=== PATIENT | male | born 2000 | race Caucasian/White ===

== ENCOUNTER 2024-02-27 12:51 | Inpatient (IN) ==
[2024-02-27 13:32] LABS: Basophils # (auto) 0.07 K/uL (0.00-0.20); Basophils % (auto) 0.8 %; Eosinophils # (auto) 0.12 K/uL (0.00-0.50); Eosinophils % (auto) 1.4 %; Hematocrit (blood only) 44.2 % (42.0-52.0); Hemoglobin 14.9 g/dl (14.0-18.0); Immature Granulocytes # (auto) 0.02 K/uL (0.01-0.20); Immature Granulocytes % (auto) 0.2 %; Lymphocytes # (auto) 2.01 K/uL (1.20-3.40); Lymphocytes % (auto) 22.9 %; Mean Corpuscular Hemoglobin 29.5 pg (25.0-34.0); Mean Corpuscular Hgb Conc 33.7 g/dL (32.0-36.0); Mean Corpuscular Volume 87.5 fL (80.0-100.0); Mean Platelet Volume 9.6 fL (9.4-12.4); Monocytes # (auto) 1.51 K/uL (0.11-0.59); Monocytes % (auto) 17.2 %; Neutrophils # (auto) 5.06 K/uL (1.40-6.50); Neutrophils % (auto) 57.5 %; Platelet Count 263 K/uL (130-400); RDW Coefficient of Variation 13.2 % (11.5-14.5); RDW Standard Deviation 42.3 fL (36.4-46.3); Red Blood Count 5.05 M/uL (4.70-6.10); White Blood Count 8.79 K/ul (4.8-10.8)
[2024-02-27 13:45] LABS: Albumin Globulin Ratio 1.7 (0.9-2); Albumin Level 4.6 gm/dl (3.4-5.0); BUN Creatinine Ratio 8.3 (10-20); Bilirubin,Total 0.4 mg/dl (0.2-1.0); Calcium 9.4 mg/dl (8.6-10.3); Creatinine Clr Calc Pharmacy 133.5 ml/min; Globulin 2.7 gm/dl (2.5-4.0); Potassium 3.8 mmol/L (3.5-5.1); Total Protein 7.3 gm/dl (6.0-8.3)
--- NOTE | 2024-02-27 13:48 | XRay Report ---
XR chest 1V not portable HISTORY: 24 years-old Male Chest pain, nonspecific acute chest pain COMPARISON: None TECHNIQUE: PA view of the chest FINDINGS: Cardiac silhouette is normal. No pneumothorax, pleural effusion or airspace consolidation. Bones appe ar normal. IMPRESSION: No acute process. ACT 112: Negative or not required by law. The above report was generated using voice recognition software. It may contain grammatical, syntax o r spelling errors. Electronically signed by: Simba Donnelly M.D. 02/27/2024 1:46 PM
[2024-02-27 13:59] LABS: Troponin I High Sensitivity 152.8 pg/ml (0-20)
[2024-02-27 13:59] LABS: Influenza A virus by PCR Negative (Neg); Influenza B virus by PCR Negative (Neg); RSV by PCR Negative (Neg); SARS CoV2 RNA(COVID-19) Ceph NEGATIVE (Negative)
[2024-02-27] MEDS: OPTIRAY 320 125ml IV ONE (14:14)
[2024-02-27] MEDS: SODIUM CHLORIDE 0.9% 1,000 ML IV ONE (14:22)
[2024-02-27] MEDS: ALBUTEROL HFA 8 GM INHALER INH ONE (14:22)
--- NOTE | 2024-02-27 14:22 | Emergency Department Note ---
Impression & Plan Precordial chest pain, Elevated troponin, Near syncope, Pneumonia ED Provider Note NAME: ULICES SARMIENTO AGE: 24 SEX: M : 2000 ARRIVES VIA: Walk-In INFORMANT: [Patient][friend] ED PROVIDER(S): [Edgar Moses MD] CHIEF COMPLAINT: Chest pain HISTORY OF PRESENT ILLNESS: The patient is a 24-year-old male whose been sick with a cough and congestion for about 2 weeks. He came to this area to visit a friend. It was his birthday and he admits that this past weekend, he did have a lot of alcohol to drink. This morning, he stood and became faint. He felt short of breath and had some chest discomfort. His symptoms were ongoing for a few hours, he was quite shaky and looked unwell. He presents for evaluation. Patient has no history of lung or heart disease. There has been no prolonged travel. No previous diagnosis of DVT or PE. No history of DVT or PE with his family. PMHx/PSHx/Social Hx: See Below PHYSICAL EXAM: GENERAL: Patient is in no acute distress. HEENT: No acute trauma, normocephalic atraumatic, mucous membranes moist, no nasal congestion. No throat erythema or exudate. He does have a hoarse voice. NECK: No stridor, no adenopathy, no meningismus, trachea is midline. LUNGS: Clear to auscultation bilaterally, no wheeze, no rhonchi, breath sounds equal. Breath sounds are diminished bilaterally. HEART: Without murmurs gallops or rubs, regular rate and rhythm. ABDOMEN: Soft, nontender, no peritonitis. EXTREMITIES: No cyanosis, full range of motion of all the joints without pain or difficulty. NEUROLOGIC: Oriented x 3, no acute motor or sensory deficits, no focal weakness. SKIN: No jaundice, no diaphoresis. DIFFERENTIAL DIAGNOSIS: Bronchitis or pneumonia, dysrhythmia, PE, musculoskeletal pain, dehydration, electrolyte imbalance, among others. EMERGENCY DEPARTMENT PROCEDURES: MEDICAL DECISION MAKING: There is no leukocytosis or concerning anemia. There is a normal platelet count. No coagulopathy. No renal failure or significant electrolyte abnormality. No concerning liver enzyme elevation. Patient appears to be in a euthyroid state. COVID, influenza and RSV testing returned negative. Chest x- ray did not show pneumonia or CHF. ECG showed a normal sinus rhythm, no obvious ischemia, no dysrhythmia. Cardiac enzyme testing x 1 was slightly elevated and concerning for potential cardiac injury. Chest CT showed a right upper lung pneumonia, no evidence for PE. The patient received IV saline for hydration. He was given IV ceftriaxone and oral doxycycline for his pneumonia findings. He received IV Zofran for nausea and was given albuterol for his presumed bronchospasm. The patient is currently resting comfortably. He is not hypoxic. He has done well. I did speak with cardiology. Given his complaints, given the troponin elevation, given the concerns for potential myocarditis, hospitalization/monitoring was felt warranted. I spoke with the patient and case management. I did speak with the on-call hospitalist. The patient is aware of all his results and he understands the need for a hospital stay. Prior/Outside records/notes reviewed: None ECG per my interpretation: Indication was chest pain and near syncope. The ECG shows a normal sinus rhythm with a rate of 84. There is no ST elevation, no PVCs. The QTc is 418. Continuous Cardiac Monitoring per my interpretation: An order was placed for continuous cardiac monitoring. The monitor shows a rate of 90 with normal sinus rhythm. Imaging/x-ray results per my interpretation: Chest x-ray does not show mediastinal widening, pneumonia or pneumothorax. Chronic Medical/Social conditions affecting care: None Care/Management discussed with: On-call cardiology-Dr. Ackerman, case management and the on-call hospitalist. Level of care consideration(s): After review of the information above and other included data: --I believe the patient requires escalation of care to admission DISPOSITION: Admission Past Med/Surg History Problem List (Updated 02/27/24 @ 17:38 by Edgar Moses MD) Pneumonia (Acute) Near syncope (Acute) Elevated troponin (Acute) Precordial chest pain (Acute) Elevated troponin Bronchopneumonia Medical History No significant medical problems Social History Smoking Status: Current every day smoker Feels Safe at Home: Yes Allergies Allergies Allergy/AdvReac Type Severity Reaction Status Date / Time amoxicillin Allergy Unknown Uncoded 02/27/24 17:07 Results & Data (ED) Vital Signs Vital Signs - 24 hr 02/27/24 12:57 02/27/24 13:00 02/27/24 13:42 Temperature 36.8 C Temperature Source Temporal Artery Scan Pulse Rate 124 H 75 75 Pulse Rhythm Regular Respiratory Rate 24 24 Blood Pressure 164/92 H Blood Pressure Mean 116 Blood Pressure Position Sitting Pulse Oximetry 97 97 Oxygen Delivery Method Room Air Room Air Sepsis Recent Fever Within 48 Hours No Sepsis New/Unexplained Change in Mental Status N/A Sepsis Action Taken by Nursing No Action Required 02/27/24 14:00 02/27/24 17:08 Temperature Temperature Source Pulse Rate 90 96 H Pulse Rhythm Respiratory Rate 20 Blood Pressure 141/88 H Blood Pressure Mean 107 Blood Pressure Position Pulse Oximetry Oxygen Delivery Method Sepsis Recent Fever Within 48 Hours Sepsis New/Unexplained Change in Mental Status Sepsis Action Taken by Snf Medications Current Medication List: was personally reviewed by me Laboratory Data Attestation: I reviewed the patient's lab results. 02/27/24 13:08 02/27/24 13:08 Lab Results 02/27/24 02/27/24 02/27/24 Range/Units 13:03 13:08 13:55 WBC 8.79 (4.8-10.8) K/ul RBC 5.05 (4.70-6.10) M/uL Hgb 14.9 (14.0-18.0) g/dl Hct 44.2 (42.0-52.0) % MCV 87.5 (80.0-100.0) fL MCH 29.5 (25.0-34.0) pg MCHC 33.7 (32.0-36.0) g/dL RDW Std Deviation 42.3 (36.4-46.3) fL RDW Coeff of Andrew 13.2 (11.5-14.5) % Plt Count 263 (130-400) K/uL MPV 9.6 (9.4-12.4) fL Immature Gran % (Auto) 0.2 % Neut % (Auto) 57.5 % Lymph % (Auto) 22.9 % Bent % (Auto) 17.2 % Eos % (Auto) 1.4 % Baso % (Auto) 0.8 % Neut # (Auto) 5.06 (1.40-6.50) K/uL Lymph # (Auto) 2.01 (1.20-3.40) K/uL Bent # (Auto) 1.51 H (0.11-0.59) K/uL Eos # (Auto) 0.12 (0.00-0.50) K/uL Baso # (Auto) 0.07 (0.00-0.20) K/uL Immature Gran # (Auto) 0.02 (0.01-0.20) K/uL PT Cancelled 10.9 INR Cancelled 1.0 APTT Cancelled 28 PTT Ratio Cancelled 1.0 Sodium 136 (136-145) mmol/L Potassium 3.8 (3.5-5.1) mmol/L Chloride 101 (98-107) mmol/L Carbon Dioxide 26 (21-32) mmol/L Anion Gap 9 (3-11) BUN 7 (6-23) mg/dl Creatinine 0.84 (0.6-1.4) mg/dl Est Cr Clr Drug Dosing 133.5 ml/min eGFR 126.45 BUN/Creatinine Ratio 8.3 L (10-20) Glucose 104 H (70-99(Fasting)) mg/dl Lactate (0.4-2.0) mmol/L Calcium 9.4 (8.6-10.3) mg/dl Magnesium 1.8 (1.7-2.4) mg/dl Total Bilirubin 0.4 (0.2-1.0) mg/dl AST 32 (13-39) U/L ALT 39 (7-52) U/L Alkaline Phosphatase 113 H (34-104) U/L Troponin I High Sens 152.8 H* (0-20) pg/ml Total Protein 7.3 (6.0-8.3) gm/dl Albumin 4.6 (3.4-5.0) gm/dl Globulin 2.7 (2.5-4.0) gm/dl Albumin/Globulin Ratio 1.7 (0.9-2) TSH 2.141 (0.300-4.500) uIu/ml SARS-CoV-2 (PCR) NEGATIVE (Negative) Influenza Type A (PCR) Negative (Neg) Influenza Type B (PCR) Negative (Neg) RSV (RT-PCR) Negative (Neg) 02/27/24 02/27/24 Range/Units 15:00 17:11 WBC (4.8-10.8) K/ul RBC (4.70-6.10) M/uL Hgb (14.0-18.0) g/dl Hct (42.0-52.0) % MCV (80.0-100.0) fL MCH (25.0-34.0) pg MCHC (32.0-36.0) g/dL RDW Std Deviation (36.4-46.3) fL RDW Coeff of Andrew (11.5-14.5) % Plt Count (130-400) K/uL MPV (9.4-12.4) fL Immature Gran % (Auto) % Neut % (Auto) % Lymph % (Auto) % Bent % (Auto) % Eos % (Auto) % Baso % (Auto) % Neut # (Auto) (1.40-6.50) K/uL Lymph # (Auto) (1.20-3.40) K/uL Bent # (Auto) (0.11-0.59) K/uL Eos # (Auto) (0.00-0.50) K/uL Baso # (Auto) (0.00-0.20) K/uL Immature Gran # (Auto) (0.01-0.20) K/uL PT INR APTT PTT Ratio Sodium (136-145) mmol/L Potassium (3.5-5.1) mmol/L Chloride (98-107) mmol/L Carbon Dioxide (21-32) mmol/L Anion Gap (3-11) BUN (6-23) mg/dl Creatinine (0.6-1.4) mg/dl Est Cr Clr Drug Dosing ml/min eGFR BUN/Creatinine Ratio (10-20) Glucose (70-99(Fasting)) mg/dl Lactate 1.9 (0.4-2.0) mmol/L Calcium (8.6-10.3) mg/dl Magnesium (1.7-2.4) mg/dl Total Bilirubin (0.2-1.0) mg/dl AST (13-39) U/L ALT (7-52) U/L Alkaline Phosphatase (34-104) U/L Troponin I High Sens 219.5 H* D (0-20) pg/ml Total Protein (6.0-8.3) gm/dl Albumin (3.4-5.0) gm/dl Globulin (2.5-4.0) gm/dl Albumin/Globulin Ratio (0.9-2) TSH (0.300-4.500) uIu/ml SARS-CoV-2 (PCR) (Negative) Influenza Type A (PCR) (Neg) Influenza Type B (PCR) (Neg) RSV (RT-PCR) (Neg) Administered Medications Discontinued Medications Albuterol (Albuterol Hfa 8 Gm Inhaler) 2 puffs INH NOW ONE Stop: 02/27/24 14:00 Last Admin: 02/27/24 14:22 Dose: 2 puffs Documented By: JADA Doxycycline Hyclate (Doxycycline Hyclate 100 Mg Cap) 100 mg PO NOW STA Stop: 02/27/24 15:29 Last Admin: 02/27/24 15:42 Dose: 100 mg Documented By: DANIELLE Sodium Chloride (Nss) 1,000 mls @ 999 mls/hr IV .Q1H1M ONE Stop: 02/27/24 14:59 Last Infusion: 02/27/24 15:34 Dose: Infused Documented By: Admin: 02/27/24 14:22 Dose: 999 mls/hr Documented By: JADA Ceftriaxone Sodium (Rocephin) 2,000 mg in 50 mls @ 100 mls/hr IV NOW STA Stop: 02/27/24 15:57 Last Infusion: 02/27/24 16:08 Dose: Infused Documented By: Admin: 02/27/24 15:41 Dose: 100 mls/hr Documented By: DANIELLE Ioversol (Optiray 320 125ml) 112 ml IV ONCE ONE Stop: 02/27/24 14:15 Last Admin: 02/27/24 14:14 Dose: 112 ml Documented By: VICENTE Ondansetron HCl (Ondansetron Inj 2 Mg/Ml 2 Ml Vial) 4 mg IV NOW STA Stop: 02/27/24 17:24 Last Admin: 02/27/24 17:28 Dose: 4 mg Documented By: DANIELLE Imaging Data Radiologist's Impression: Chest X-Ray 02/27/24 13:00 XR chest 1V not portable HISTORY: 24 years-old Male Chest pain, nonspecific acute chest pain COMPARISON: None TECHNIQUE: PA view of the chest FINDINGS: Cardiac silhouette is normal. No pneumothorax, pleural effusion or airspace consolidation. Bones appear normal. IMPRESSION: No acute process. ACT 112: Negative or not required by law. The above report was generated using voice recognition software. It may contain grammatical, syntax or spelling errors. Electronically signed by: Simba Donnelly M.D. 02/27/2024 1:46 PM Chest CTA 02/27/24 13:59 CT angio chest PE protocol CT DOSE: 733.02 mGy.cm HISTORY: 24 years-old Male with PE. Acute cough with chest pain TECHNIQUE: Multiple CTA images of the chest were obtained after the intravenous administration of 112 ml Optiray. Coronal and sagittal MIPS were obtained from the axial data set and were submitted for review. All measurements were obtained according to NASCET criteria. A dose lowering technique was utilized adhering to the principles of ALARA. COMPARISON: Chest radiograph of same day FINDINGS: CTA: There is adequate opacification of the pulmonary arteries to the level of the subsegmental branches without convincing evidence of acute pulmonary embolism. Abnormal thoracic aorta.Heart size is normal. CT CHEST: No dominant thyroid nodule is seen. No pathologically adenopathy by CT size criteria. There is no pneumothorax, pleural effusion or pulmonary edema. Residual thymic tissue in the anterior mediastinum. Mild bilateral bronchial wall thickening with areas of mosaic attenuation and air trapping noted within the left lung. Mild bronchoalveolar distribution of subcentimeter consolidative nodular foci within the posterior segment right upper lobe. No lobar space consolidation. Central airways are patent. The imaged upper abdominal structures are normal. The osseous structures appear unremarkable. IMPRESSION: 1. No pulmonary emboli. 2. Mild right upper lobe bronchopneumonia. 3. No pleural effusion or lymphadenopathy. ACT 112: Negative or not required by law. The above report was generated using voice recognition software. It may contain grammatical, syntax or spelling errors. Electronically signed by: Simba Donnelly M.D. 02/27/2024 3:25 PM Discharge Plan Visit Data Chief Complaint: Chest Pain Stated Complaint: CHEST PAIN, TROUBLE WALKING, SICK FOR 2 WKS ED Provider: Edgar Moses Discharge Problem: Precordial chest pain, Elevated troponin, Near syncope, Pneumonia Patient Disposition: Admitted As Inpatient Condition: Fair Forms Stand Alone Forms: [facility] Referrals Referrals: PCP,NO [Primary Care Provider] - Discharge Problem: Pneumonia Qualifiers: Pneumonia type: due to unspecified organism Laterality: right Lung location: u pper lobe of lung Qualified Code(s): J18.9 - Pneumonia, unspecified organism
[2024-02-27 14:29] LABS: Magnesium 1.8 mg/dl (1.7-2.4)
[2024-02-27 14:44] LABS: Thyroid Stimulating Hormone 2.141 uIu/ml (0.300-4.500)
[2024-02-27 14:48] LABS: Partial Thromboplastin Time 28 Seconds (21-31); Prothrombin Time 10.9 Seconds (9.0-12.0)
--- NOTE | 2024-02-27 15:19 | Electrocardiogram Report ---
Test Reason : Blood Pressure : */* mmHG Vent. Rate : 84 BPM Atrial Rate : 84 BPM P-R Int : 134 ms QRS Dur : 86 ms QT Int : 354 ms P-R-T Axes : 49 58 48 degrees QTcB Int : 418 ms Normal sinus rhythm Normal ECG No previous ECGs available Confirmed by Juan Ackerman ([id number]) on 02/27/2024 3:18:55 PM Referred By: Confirmed By: Juan Ackerman
--- NOTE | 2024-02-27 15:26 | CT Scan Report ---
CT angio chest PE protocol CT DOSE: 733.02 mGy.cm HISTORY: 24 years-old Male with PE. Acute cough with chest pain TECHNIQUE: Multiple CTA images of the chest were obtained after the intravenous administration of 112 ml Optiray. Coronal and sagittal MIPS were obtained from the axial data set and were submitted for review. All measurements were obtained according to NASCET criteria. A dose lowering technique was u tilized adhering to the principles of ALARA. COMPARISON: Chest radiograph of same day FINDINGS: CTA: There is adequate opacification of the pulmonary arteries to the level of the subsegmental branches w ithout convincing evidence of acute pulmonary embolism. Abnormal thoracic aorta.Heart size is normal. CT CHEST: No dominant thyroid nodule is seen. No pathologically adenopathy by CT size criteria. There is no pn eumothorax, pleural effusion or pulmonary edema. Residual thymic tissue in the anterior mediastinum. Mild bilateral bronchial wall thickening with areas of mosaic attenuation and air trapping noted with in the left lung. Mild bronchoalveolar distribution of subcentimeter consolidative nodular foci withi n the posterior segment right upper lobe. No lobar space consolidation. Central airways are patent. The imaged upper abdominal structures are normal. The osseous structures appear unremarkable. IMPRESSION: 1. No pulmonary emboli. 2. Mild right upper lobe bronchopneumonia. 3. No pleural effusion or lymphadenopathy. ACT 112: Negative or not required by law. The above report was generated using voice recognition software. It may contain grammatical, syntax o r spelling errors. Electronically signed by: Simba Donnelly M.D. 02/27/2024 3:25 PM
[2024-02-27] MEDS: cefTRIAXone SODIUM 2,000 MG/50 ML BAG IV STA (15:41)
[2024-02-27] MEDS: DOXYCYCLINE HYCLATE 100 MG CAP PO STA (15:42)
--- NOTE | 2024-02-27 16:47 | History & Physical Report ---
Date of Service February 27, 2024 Assessment & Plan (1) Sepsis: (2) Bronchopneumonia: (3) Group A streptococcal infection: (4) Elevated troponin: Plan Jae Gill is a 24y/o M with no significant PMHx who presented to the ED on 02/27/2024 secondary to cough/congestion/sore throat x 2 weeks and centralized chest pain that began this morning. He was found to have mild right upper lobe bronchopneumonia in addition to an elevated troponin level x 2 on presenting workup. Sepsis 2/2 R Upper Lobe Bronchopneumonia, Group A Strep Positive: Meets sepsis criteria on admission 2/2 tachycardia, tachypnea + source of infection. Head CT unremarkable --> obtained 2/2 presyncopal event patient experienced [employer]. CXR personally reviewed and unremarkable. Chest CTA --> Mild R upper lobe bronchopneumonia, no evidence of PE. S/p 1L NSS, 2g IV Rocephin and 100mg po doxycycline in the ED. No leukocytosis, lactate negative on admitting labs. Procalcitonin pending. Biofire pending. Group A Strep PCR positive. Continue IV Rocephin + po doxycycline. Probiotic added on. Elevated Troponin Level Chest Pain R/O, C/F Possible Strep Myocarditis: Initial troponin 152.8 --> repeat troponin uptrended to 219.5 at 15:00. Initial EKG personally reviewed and notably unremarkable. ED provider, Dr. Moses, spoke with Dr. Ackerman from [facility] whom recommended obtaining an echocardiogram to rule out possible myocarditis. Continue to trend troponin Q6H, repeat EKG in AM. EKG w/ chest pain PRN. Echocardiogram pending. Need to r/o ACS vs possible myocarditis - [facility] consult pending as ED provider had previously discussed this case with their team as mentioned. SL nitroglycerin PRN added on. DVT Prophylaxis: SQ Lovenox Code Status: FULL CODE PCP: NO PCP - Unassigned Disposition: Admit to Med/Telemetry Patient seen in collaboration with Dr. Gibbons. Please see addendum. I spent a total of 55 minutes coordinating, documenting, and providing care for this patient excluding time spent in the performance of separately billed services. This included personally reviewing all current laboratories and imaging studies, medical reconciliation, outpatient chart review and discussion with specialists. This chart was completed in part utilizing Speech Voice Recognition Software. Grammatical errors, random word insertions, pronoun errors, and incomplete sentences are an occasional consequence of this system due to software limitations, ambient noise, and hardware issues. Any formal questions or concerns about the content, text, or information contained within the body of this dictation should be directly addressed to the provider for clarification. History of Present Illness Chief Complaint: Cough/Congestion/Sore Throat x 3-4 Weeks, New-Onset Chest Pain Primary Care Provider: NO PCP Jae Gill is a 24y/o M with no significant PMHx who presented to the ED on 02/27/2024 secondary to cough/congestion/sore throat x 3 to 4 weeks and centralized chest pain that began this morning. History obtained from patient and associated chart review. Patient reports that he has been experiencing a productive cough of greenish sputum, sinus congestion and sore throat for the past 3 to 4 weeks. He recently traveled up to [place] to meet up with some of his friends who attend [employer]. It was his birthday yesterday so he had been out drinking alcohol over the weekend. 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 He used to follow with a [facility] PCP in [place], [place] but has not done so in some time. He is not currently established with any PCP. Per [facility] documentation, appears patient may be trying to establish care with [facility] in [place] but he did not mention this during our conversation. He notes that his voice has become quite hoarse due to his ongoing cough. No recent fevers, chills/body aches or night sweats that he recalls. He mentions that he started to feel faint when he stood up earlier this morning. He also began to experience some centralized chest pain and shortness of breath. Patient mentions that it felt like he was "having a panic attack." This episode lasted approximately 45 minutes. He denies ever passing out but mentions he started to feel rather weak overall and was very shaky as his heart "felt like it was racing." He reports that the chest pain was initially sharp but now feels more dull, achy. Denies any radiation of the chest pain. No prior history of anxiety or asthma. Denies any lightheadedness or dizziness currently. His throat pain has gotten progressively worse as his cough and congestion persist despite using various OTC decongestants/pain relieving medications (such as ibuprofen/acetaminophen). Patient does not take any prescribed medications. No recent fevers, N/V or diarrhea. He has been tolerating a diet without issue. He has not been seen by any medical providers since these symptoms began. No leukocytosis on admitting labs however his initial troponin was 152.8 and then repeat troponin uptrended to 219.5 --> ED provider, Dr. Moses, spoke with Dr. Ackerman from [facility] whom recommended obtaining an echocardiogram to rule out possible pericarditis/myocarditis given his elevated troponin. Biofire viral panel pending. CXR was unremarkable. Chest CTA revealed mild right upper lobe bronchopneumonia but was negative for any evidence of PE. Allergies Allergy/AdvReac Type Severity Reaction Status Date / Time amoxicillin Allergy Unknown Verified 02/27/24 19:10 Home Medications Medication Instructions Recorded Confirmed Type No Known Home Medications 02/27/24 02/27/24 History Past Med/Surg History Problem List (Updated 02/27/24 @ 19:07 by Mariia Shaffer PA-C) Group A streptococcal infection Sepsis Pneumonia (Acute) Near syncope (Acute) Elevated troponin (Acute) Precordial chest pain (Acute) Elevated troponin Bronchopneumonia Medical History No significant medical problems Social History Smoking Status: Current every day smoker Feels Safe at Home: Yes Review of Systems Review of Systems: At least ten systems reviewed and negative, except as noted in the HPI. Physical Exam Physical Exam: General: WD/WN, NAD, sitting up in bed, pleasant, hoarse voice but conversing appropriately. A+Ox3, euthymic affect. HEENT: Normocephalic, atraumatic. Conjunctivae normal. External ear and nose normal, oropharynx with mild erythema. Respiratory: Normal respiratory effort, lungs clear to auscultation, no wheeze/rales/rhonchi. No accessory muscle use. Cardiovascular: Regular rate, rhythm, normal peripheral pulses, no BLE edema. Vessels: No JVD. Abdomen/GI: Normal bowel sounds, soft, nondistended, nontender to palpation in all quadrants. Extremities/Musculoskeletal: No cyanosis or clubbing, extremities motor strength intact, moves all extremities. Neurologic: No overt focal deficits, CN's II-XI not formally tested but appear grossly intact bilaterally. Skin: No rashes, normal color, warm/dry. Results & Data Results & Data Vital Signs (Past 12 Hours) Vital Signs Temp Pulse Resp BP Pulse Ox O2 Del Method 02/27/24 14:00 90 20 141/88 H 02/27/24 13:42 75 02/27/24 13:00 75 24 97 Room Air 02/27/24 12:57 36.8 C 124 H 24 164/92 H 97 Room Air Laboratory Results Short CBC 02/27/24 Range/Units 13:08 WBC 8.79 (4.8-10.8) K/ul Hgb 14.9 (14.0-18.0) g/dl Hct 44.2 (42.0-52.0) % Plt Count 263 (130-400) K/uL BMP 02/27/24 13:08 Sodium 136 Potassium 3.8 Chloride 101 Carbon Dioxide 26 BUN 7 Creatinine 0.84 Glucose 104 H Calcium 9.4 Liver Function 02/27/24 Range/Units 13:08 Total Bilirubin 0.4 (0.2-1.0) mg/dl AST 32 (13-39) U/L ALT 39 (7-52) U/L Alkaline Phosphatase 113 H (34-104) U/L Albumin 4.6 (3.4-5.0) gm/dl Diagnostic Findings Chest X-Ray 02/27/24 13:00 XR chest 1V not portable HISTORY: 24 years-old Male Chest pain, nonspecific acute chest pain COMPARISON: None TECHNIQUE: PA view of the chest FINDINGS: Cardiac silhouette is normal. No pneumothorax, pleural effusion or airspace consolidation. Bones appear normal. IMPRESSION: No acute process. ACT 112: Negative or not required by law. The above report was generated using voice recognition software. It may contain grammatical, syntax or spelling errors. Electronically signed by: Simba Donnelly M.D. 02/27/2024 1:46 PM Chest CTA 02/27/24 13:59 CT angio chest PE protocol CT DOSE: 733.02 mGy.cm HISTORY: 24 years-old Male with PE. Acute cough with chest pain TECHNIQUE: Multiple CTA images of the chest were obtained after the intravenous administration of 112 ml Optiray. Coronal and sagittal MIPS were obtained from the axial data set and were submitted for review. All measurements were obtaine d according to NASCET criteria. A dose lowering technique was utilized adhering to the principles of ALARA. COMPARISON: Chest radiograph of same day FINDINGS: CTA: There is adequate opacification of the pulmonary arteries to the level of the subsegmental branches without convincing evidence of acute pulmonary embolism. Abnormal thoracic aorta.Heart size is normal. CT CHEST: No dominant thyroid nodule is seen. No pathologically adenopathy by CT size criteria. There is no pneumothorax, pleural effusion or pulmonary edema. Residual thymic tissue in the anterior mediastinum. Mild bilateral bronchial wall thickening with areas of mosaic attenuation and air trapping noted within the left lung. Mild bronchoalveolar distribution of subcentimeter consolidative nodular foci within the posterior segment right upper lobe. No lobar space consolidation. Central airways are patent. The imaged upper abdominal structures are normal. The osseous structures appear unremarkable. IMPRESSION: 1. No pulmonary emboli. 2. Mild right upper lobe bronchopneumonia. 3. No pleural effusion or lymphadenopathy. ACT 112: Negative or not required by law. The above report was generated using voice recognition software. It may contain grammatical, syntax or spelling errors. Electronically signed by: Simba Donnelly M.D. 02/27/2024 3:25 PM Medications Administered Discontinued Medications Albuterol (Albuterol Hfa 8 Gm Inhaler) 2 puffs INH NOW ONE Stop: 02/27/24 14:00 Last Admin: 02/27/24 14:22 Dose: 2 puffs Documented By: JADA Doxycycline Hyclate (Doxycycline Hyclate 100 Mg Cap) 100 mg PO NOW STA Stop: 02/27/24 15:29 Last Admin: 02/27/24 15:42 Dose: 100 mg Documented By: DANIELLE Sodium Chloride (Nss) 1,000 mls @ 999 mls/hr IV .Q1H1M ONE Stop: 02/27/24 14:59 Last Infusion: 02/27/24 15:34 Dose: Infused Documented By: Admin: 02/27/24 14:22 Dose: 999 mls/hr Documented By: JADA Ceftriaxone Sodium (Rocephin) 2,000 mg in 50 mls @ 100 mls/hr IV NOW STA Stop: 02/27/24 15:57 Last Infusion: 02/27/24 16:08 Dose: Infused Documented By: Admin: 02/27/24 15:41 Dose: 100 mls/hr Documented By: DANIELLE Ioversol (Optiray 320 125ml) 112 ml IV ONCE ONE Stop: 02/27/24 14:15 Last Admin: 02/27/24 14:14 Dose: 112 ml Documented By: JAR Code Status & VTE Plan Code Status FULL CODE Supervising Physician Co-Signing Physician Notes 24-year-old male with no significant PMH presented with complaint of few weeks of cough and greenish sputum, sore throat and congestion. He denies fever. Reports mid chest pain starting today, reports weakness, reports has been eating okay/denies nausea, vomiting, diarrhea. Labs and imaging reviewed. CBC WNL, BMP WNL, troponin elevated, up trended. ALP slightly elevated, repeat LFT in AM. TSH WNL Respiratory pathogen panel pending CT chest with no PE, suggestive of right upper lobe bronchopneumonia. Assessment and plan: Sepsis secondary to right upper lobe bronchopneumonia: Patient started on Aleks ephin and Doxy while in ED, continue. Take doxycycline with 8 ounces of water, stay upright for half an hour to avoid pill esophagitis. Chest pain rule out ACS versus myocarditis: Patient likely had upper viral infection in the last few weeks ago, started with chest pain today, troponin elevated, up trended. trend trop, Will get echo, telemetry monitoring, cardiology consult. On exam: GENERAL: Alert and oriented x3. NAD, on RA. HEENT: No pallor, no icterus. Pupils equal, round and reactive to light. Oral mucosa moist. Throat congested and mildly erythematous. NECK: No JVD, no neck masses. No LAD. HEART: S1 and S2 heard. Regular rate and rhythm. HR in 90s. No murmur, no gallop. RESPIRATORY SYSTEM: Normal AP diameter. No accessory muscle use. No wheezing, no crackles. ABDOMEN: Soft, bowel sounds present, nontender, no distention. CENTRAL NERVOUS SYSTEM: No facial droop. Speech is clear. Obeys simple commands. Moves extremities. EXTREMITIES: No edema, no erythema seen. I have seen and examined the patient and have discussed the case with the provider above. I agree with the assessment and plan as stated. (1) Sepsis Sepsis acute organ dysfunction status: unspecified Sepsis type: sepsis due to unspecified organism Qualified Code(s): A41.9 - Sepsis, unspecified organism
[2024-02-27] MEDS: ONDANSETRON INJ 2 MG/ML 2 ML VIAL IV STA (17:28)
--- NOTE | 2024-02-27 18:01 | CT Scan Report ---
EXAM: CT Head Without Intravenous Contrast INDICATION: Presyncope. TECHNIQUE: Axial computed tomography images of the head/brain without intravenous contrast. Sagittal and/or coronal reformats are provided. Sagittal and coronal reformatted images were created and reviewed. This CT exam was performed using one or more of the following dose reduction techniques: automated exposure control, adjustment of the mA and/or kV according to patient size, and/or use of iterative reconstruction technique. COMPARISON: No relevant prior studies available. FINDINGS: Limitations: None. Brain and extra-axial spaces: No abnormality noted. No hemorrhage. No significant white matter disease. No edema. No ventriculomegaly. Bones/joints: No acute changes. Soft tissues: No significant abnormality noted. Vasculature: No acute abnormality noted. Sinuses: No layering fluid in the visualized portions of the paranasal sinuses. Mastoid air cells: No mastoid effusion. Orbits: No significant abnormality noted. IMPRESSION: No abnormality noted. ACT 112: Negative or not required by law. Electronically signed by Samantha Bach 02-27-2024 6:00 PM
[2024-02-27 18:25] LABS: Adenovirus PCR Not Detected (NotDetected); Bordetella parapertussis PCR Not Detected (NotDetected); Bordetella pertussis PCR Not Detected (NotDetected); Chlamydia pneumoniae PCR Not Detected (NotDetected); Coronavirus 229E PCR Not Detected (NotDetected); Coronavirus CoV-2 (COVID19)PCR Not Detected (NotDetected); Coronavirus HKU1 PCR Not Detected (NotDetected); Coronavirus NL63 PCR DETECTED (NotDetected); Coronavirus OC43PCR Not Detected (NotDetected); Human Metapneumovirus PCR Not Detected (NotDetected); Influenza A PCR Not Detected (NotDetected); Influenza B PCR Not Detected (NotDetected); Mycoplasma pneumoniae PCR Not Detected (NotDetected); Parainfluenza Virus 1 PCR Not Detected (NotDetected); Parainfluenza Virus 2 PCR Not Detected (NotDetected); Parainfluenza Virus 3 PCR Not Detected (NotDetected); Parainfluenza Virus 4 PCR Not Detected (NotDetected); Respiratory Syncytial VirusPCR Not Detected (NotDetected); Rhinovirus/Enterovirus PCR Not Detected (NotDetected)
[2024-02-27] MEDS ORDERED: NITROGLYCERIN SL 0.4 MG/TAB TAB SL PRN (19:02)
[2024-02-27] MEDS ORDERED: POLYETHYLENE (MIRALAX) 17 GM PACK PO PRN (19:02)
[2024-02-27] MEDS ORDERED: ONDANSETRON INJ 2 MG/ML 2 ML VIAL IV PRN (19:02)
[2024-02-27] MEDS ORDERED: MAGNESIUM HYDROXIDE SUSP 30 ML UDC PO PRN (19:02)
[2024-02-27] MEDS: ADVANCED PROBIOTIC 625 MG CAPSULE PO SCH (20:41)
[2024-02-27] MEDS: ENOXAPARIN INJ 40 MG/0.4 ML SYR SQ SCH (20:42)
[2024-02-27] MEDS: DOXYCYCLINE HYCLATE 100 MG CAP PO SCH (20:42)
[2024-02-28] MEDS: ACETAMINOPHEN 325 MG TAB PO PRN (02:20)
--- NOTE | 2024-02-28 07:56 | Electrocardiogram Report ---
Test Reason : Blood Pressure : */* mmHG Vent. Rate : 82 BPM Atrial Rate : 82 BPM P-R Int : 150 ms QRS Dur : 92 ms QT Int : 368 ms P-R-T Axes : 58 65 40 degrees QTcB Int : 429 ms Normal sinus rhythm Normal ECG When compared with ECG of 27-Feb-2024 13:03, No significant change was found Confirmed by Juan Ackerman ([id number]) on 02/28/2024 7:56:01 AM Referred By: REFERRED SELF Confirmed By: Juan Ackerman
[2024-02-28] MEDS: cefTRIAXone SODIUM 2,000 MG/50 ML BAG IV SCH (14:19)
[2024-02-28] MEDS: CEFDINIR 300 MG CAP PO STA (14:58)
[2024-02-28] MEDS: AZITHROMYCIN 250 MG TAB PO ONE (14:58)
--- NOTE | 2024-02-28 15:48 | XCELERA ---
[id number]
--- NOTE | 2024-02-28 15:52 | Cardiology Consultation ---
Date of Consultation February 28, 2024 Assessment & Plan (1) Group A streptococcal infection: (2) Myocarditis: (3) Viral URI: Plan 24-year-old generally healthy man with several weeks of symptoms found to have bronchopneumonia on chest CT and BioFire positive for common cold coronavirus and strep. His elevated troponin with transient chest pain likely represents a mild myocarditis, echocardiogram is reassuring and that he has no pericardial effusion or wall motion abnormalities. At this point, unclear whether the myocarditis could be due to adjacent bronchopneumonia or the common cold coronavirus, less likely is related to strep (since he is afebrile with a normal white count his strep infection is not likely systemic). He was feeling bit better this morning and I was inclined to recommend discharge if his echocardiogram was favorable, however with rising troponin and the fact that he lives out of the area and may have limited follow-up would recommend continued observation overnight with further serial troponins. The reason for this is that occasionally patients can develop a fulminant myocarditis with reduced LV function and/or dysrhythmia, although this is unlikely to occur, and his troponin fluctuations may be within the range of laboratory variation, it would be important to monitor for a rapidly rising troponin and/or additional symptoms. Will continue to follow while he is hospitalized. Upon discharge he should have limited physical activity for a period of weeks to months (depending upon peak troponin), since myocarditis can predispose to exercise-induced dysrhythmias. History of Present Illness Reason for Consultation: Elevated troponin, chest pain Requesting Physician: Chetna Matias MD Attending Physician: Chetna Matias MD History of Present Illness Generally healthy 24-year-old man admitted 02/27/2024 after he presented with a cough and chest pain and was found on chest CT to have right upper lobe bronchopneumonia and was incidentally noted to have an elevated troponin. 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 Over the past 3 to 4 weeks he has had a cough and sore throat, yesterday morning he developed some sternal region chest discomfort which was nonpleuritic and nonpositional. No dyspnea, diaphoresis, or nausea, he did note brief palpitations. His birthday was just prior to presentation and had been drinking alcohol over the weekend. ER workup included troponin values of 152 and 219, subsequent troponin dropped to 229 but then increased to 378. Telemetry has been benign, sinus rhythm without ectopy, pauses, or dysrhythmia. He noted that the chest discomfort resolved overnight. His only somatic complaint was some nausea after taking the antibiotic pills. Otherwise, he felt well. Allergies Allergy/AdvReac Type Severity Reaction Status Date / Time amoxicillin Allergy Unknown Verified 02/27/24 19:10 Home Medications Medication Instructions Recorded Confirmed Type azithromycin 250 mg tablet 250 mg PO DAILY 4 days #4 tabs 02/28/24 Rx cefdinir 300 mg capsule 300 mg PO Q12H 7 days #14 caps 02/28/24 Rx Patient History Medical History No significant medical problems Social History Smoking Status: Current every day smoker Tobacco Type: E-cigarettes / Vaping Second Hand Exposure: No; Do You Dip or Chew Tobacco: No; Hx Alcohol Use: Yes Alcohol type: beer and hard liquor Hx Substance Use: No Preferred Language: [place] Islander Communication Ability: Effective [employer] Art [employer] Required: No Beliefs That Will Affect Care: None Current Living Situation: Family Feels Safe at Home: Yes Physical Exam Physical Exam: Adult white male in no distress. Afebrile. BP normotensive. Pulse 90 bpm and regular. Respirations 18 unlabored. Skin: no ecchymoses or generalized lesions. HEENT: unremarkable. Neck: JVP at the clavicle at 90 degrees, no carotid bruits. Lungs: clear. Cardiac: regular rhythm, normal S1-2, no murmur or rub. Abdomen: benign. Extremities: no edema, pulses intact. Neurologic: normal affect and conversation, nonfocal. Results & Data Vital Signs (Past 12 Hours) Vital Signs Temp Pulse Pulse Resp BP Pulse Ox O2 Del Method 02/28/24 14:14 91 H 02/28/24 11:34 97.7 F 65 18 129/80 97 Room Air 02/28/24 10:16 58 L 02/28/24 07:44 97.7 F 69 18 137/89 98 Room Air Laboratory Results Troponin values 152, 219, 284, 229, 338, 378. Normal CBC. Normal electrolytes, BUN 7, creatinine 0.84. BioFire notable for positive coronavirus NL63 as well as group A strep. Diagnostic Findings ECG showed sinus rhythm at 84 bpm and was unremarkable. Second ECG showed sinus rhythm at 82 bpm and was unremarkable. Chest x-ray unremarkable. Chest CT showed right upper lobe bronchopneumonia. No pleural or pericardial effusion. Echocardiogram was completely unremarkable. PG Care Time/CCT Total # of Minutes Spent Total Time Spent with Patient: Total time spent is greater than 50% in coordination of care (as documented) at patient's floor/unit and/or counseling patient: Coding Level of Care Code 86620 IN/OBS CONSULT LVL 4,60M Diagnoses Group A streptococcal infection B95.0 Myocarditis I51.4 Viral URI J06.9
--- NOTE | 2024-02-28 16:43 | Hospitalist Progress Note ---
Date of Service February 28, 2024 Assessment & Plan (1) Sepsis: (2) Bronchopneumonia: (3) Group A streptococcal infection: (4) Elevated troponin: Plan Jae Gill is a 24y/o M with no significant PMHx who presented to the ED on 02/27/2024 secondary to cough/congestion/sore throat x 2 weeks and centralized chest pain that began this morning. He was found to have mild right upper lobe bronchopneumonia in addition to an elevated troponin level x 2 on presenting workup. #Sepsis 2/2 R Upper Lobe Bronchopneumonia, Group A Strep Positive: #Coronavirus Meets sepsis criteria on admission 2/2 tachycardia, tachypnea + source of infection. Head CT unremarkable --> obtained 2/2 presyncopal event patient experienced [employer]. CXR personally reviewed and unremarkable. Chest CTA --> Mild R upper lobe bronchopneumonia, no evidence of PE. S/p 1L NSS, 2g IV Rocephin and 100mg po doxycycline in the ED. No leukocytosis, lactate negative on admitting labs. Procalcitonin WNL. Biofirenegative . Group A Strep PCR positive. and coronavirus + Continue cefdinir and azithromycin ID consult for input on myocarditis #NTSEMI #Chest Pain R/O, C/F Possible Strep Myocarditis: Initial troponin 152.8 --> repeat troponin uptrended to 219.5 at 15:00. Initial EKG personally reviewed and notably unremarkable. ED provider, Dr. Moses, spoke with Dr. Ackerman from [facility] whom recommended obtaining an echocardiogram to rule out possible myocarditis. Continue to trend troponin Q6H, repeat EKG in AM. EKG w/ chest pain PRN. Echocardiogram WNL Cards following: trend troponin DVT Prophylaxis: SQ Lovenox Code Status: FULL CODE PCP: NO PCP - Unassigned Disposition: Admit to Med/Telemetry Admission and Anticipated Discharge Date Admission Date: February 27, 2024 Subjective NAEO Reports resolution of chest pain, however, notes some sore throat Patient denies fevers or chills at this time Discussed at bedside with family that tropinin on the rise and best to wait for it to downtrend, patient verbalized understanding Physical Exam Constitutional: WD/WN, vitals as above Respiratory: normal respiratory effort, lungs clear to auscultation Cardiovascular: RRR, no murmur, no edema Gastrointestinal (Abdomen): normal bowel sounds, soft, nontender, no he patosplenomegaly Results & Data Results & Data Vital Signs (Past 12 Hours) Vital Signs Temp Pulse Pulse Resp BP Pulse Ox O2 Del Method 02/28/24 14:14 91 H 02/28/24 11:34 36.5 C 65 18 129/80 97 Room Air 02/28/24 10:16 58 L 02/28/24 07:44 36.5 C 69 18 137/89 98 Room Air Laboratory Results troponin increased 378.1pg/ml Medications Administered Home Medications Medication Instructions Recorded Confirmed Last Taken azithromycin 250 mg tablet 250 mg PO DAILY 4 days #4 tabs 02/28/24 Unknown cefdinir 300 mg capsule 300 mg PO Q12H 7 days #14 caps 02/28/24 Unknown Active Medications Generic Name Dose Route Start Last Admin Trade Name Freq PRN Reason Stop Dose Admin Acetaminophen 650 mg 02/27/24 19:02 02/28/24 02:20 Acetaminophen 325 Mg Tab PO 03/28/24 19:01 650 mg Q4H PRN Administration Pain or Fever Enoxaparin Sodium 40 mg 02/27/24 21:00 02/27/24 20:42 Enoxaparin Inj 40 Mg/0.4 Ml Syr SQ 03/28/24 20:59 Not Given Q24H YOLIE Lactobacillus Acidophilus 1,250 mg 02/27/24 19:02 02/28/24 07:38 Advanced Probiotic 625 Mg Capsule PO 03/28/24 19:01 1,250 mg DAILY YOLIE Administration (1) Sepsis Sepsis type: sepsis due to unspecified organism Sepsis acute organ dysfunction status: unspecified Qualified Code(s): A41.9 - Sepsis, unspecified organism
[2024-02-28] MEDS: CEFDINIR 300 MG CAP PO SCH (20:29)
[2024-02-29 06:46] LABS: BUN Creatinine Ratio 20.5 (10-20); Calcium 8.9 mg/dl (8.6-10.3); Creatinine Clr Calc Pharmacy 143.7 ml/min
--- NOTE | 2024-02-29 08:20 | Electrocardiogram Report ---
Test Reason : Blood Pressure : */* mmHG Vent. Rate : 52 BPM Atrial Rate : 52 BPM P-R Int : 152 ms QRS Dur : 90 ms QT Int : 432 ms P-R-T Axes : 46 60 21 degrees QTcB Int : 401 ms Sinus bradycardia Otherwise normal ECG When compared with ECG of 27-Feb-2024 22:29, Vent. rate has decreased by 30 bpm Confirmed by Juan Ackerman ([id number]) on 02/29/2024 8:20:09 AM Referred By: REFERRED SELF Confirmed By: Juan Ackerman
[2024-02-29] MEDS: AZITHROMYCIN 250 MG TAB PO SCH (09:09)
--- NOTE | 2024-02-29 11:11 | Hospitalist Progress Note ---
Date of Service February 29, 2024 Assessment & Plan (1) Sepsis: (2) Bronchopneumonia: (3) Group A streptococcal infection: (4) Elevated troponin: Plan per Dr. Matias' notes with addendum: Jae Gill is a 24y/o M with no significant PMHx who presented to the ED on 02/27/2024 secondary to cough/congestion/sore throat x 2 weeks and centralized chest pain that began this morning. He was found to have mild right upper lobe bronchopneumonia in addition to an elevated troponin level x 2 on presenting workup. #Sepsis 2/2 R Upper Lobe Bronchopneumonia, Group A Strep Positive: #Coronavirus Meets sepsis criteria on admission 2/2 tachycardia, tachypnea + source of infection. 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 CXR personally reviewed and unremarkable. Chest CTA --> Mild R upper lobe bronchopneumonia, no evidence of PE. S/p 1L NSS, 2g IV Rocephin and 100mg po doxycycline in the ED. No leukocytosis, lactate negative on admitting labs. Procalcitonin WNL. Biofirenegative . Group A Strep PCR positive. and coronavirus + Continue cefdinir and azithromycin ID consult for input on myocarditis 02/28 clinically improved remains on room air, no dyspnea, cough is much better discharge plan: Cefdinir 300mg BID x 7 more days Azithromycin 250mg daily x 3 more days #NTSEMI #Chest Pain R/O, C/F Possible Strep Myocarditis: Initial troponin 152.8 --> repeat troponin uptrended to 219.5 at 15:00. Initial EKG personally reviewed and notably unremarkable. ED provider, Dr. Moses, spoke with Dr. Ackerman from [facility] whom recommended obtaining an echocardiogram to rule out possible myocarditis. Continue to trend troponin Q6H, repeat EKG in AM. EKG w/ chest pain PRN. Echocardiogram WNL Cards following: troponin trended down 229 --> 378 --> 242--> 168 02/28 re-evaluated by Nurse Private Duty Dr. Ackerman myocarditis felt to be more from Coronavirus NL63 recommend to treat Strep pneumonia x 7 days no heavy exertion for at least 2 weeks repeat echo in 3-4 weeks #Episode of Mild Hematochezia no other GI symptoms no diarrhea, pain with bowel movement patient advised to monitor closely and seek medical attention VITA if recurrent, increased blood in the stools, etc plan of care discussed with patient in detail and at length all questions answered he is understanding, agreeable, comfortable with the plan of care DVT Prophylaxis: SQ Lovenox Code Status: FULL CODE PCP: NO PCP - Unassigned Disposition: d/c home ff up with Primary Care Physician in 1 week - strongly advised to establish with a PCP ff up with Nurse Private Duty Admission and Anticipated Discharge Date Admission Date: February 27, 2024 Subjective ff up for pneumonia, myocarditis, etc seen resting in bed, comfortable states he feels much better overall chest pain has resolved breathing much better only has intermittent dry cough no chest pain, dyspnea, palpitations, dizziness patient saw a tinge of blood with bowel movement today- stools are formed no abdominal pain, nausea/vomiting, fever/chills no other symptoms states he is ready and would like to be discharged today Review of Systems Review of Systems: all noted and negative except for above Physical Exam Physical Exam: General- oriented x 3, not in distress, speaks in sentences with no effort or accessory muscle use Eyes- anicteric Neck- no JVD Lungs- clear breath sounds bilaterally, no rales/wheezes Heart- normal rate, regular rhythm; no murmurs Abdomen- normal bowel sounds, nondistended, soft, nontender Extremities- no pretibial edema, no calf tenderness Neuro- alert, oriented x 3; no gross focal neurologic deficits Skin- warm & dry Results & Data Results & Data Vital Signs (Past 12 Hours) Vital Signs Temp Pulse Resp BP BP Pulse Ox O2 Del Method 02/29/24 07:37 36.4 C L 60 18 120/71 98 Room Air 02/29/24 02:53 36.8 C 61 16 117/72 97 Room Air all noted and reviewed including below (1) Sepsis Sepsis type: sepsis due to unspecified organism Sepsis acute organ dysfunction status: unspecified Qualified Code(s): A41.9 - Sepsis, unspecified organism
--- NOTE | 2024-02-29 11:24 | Cardiology Progress Note ---
Date of Service February 29, 2024 Assessment & Plan (1) Myocarditis: (2) Viral URI: (3) Group A streptococcal infection: Plan He is doing well clinically with no evidence of LV dysfunction, dysrhythmia, or any further chest discomfort. Troponin peaked and is declining. Suspect his viral URI with coronavirus NL63 is the etiology for his mild myocarditis. No specific treatment beyond activity limitation. Reviewed this with him, he will be off work for a couple weeks and then has a break after that for the holidays, as such it will be a month before he resumes a higher level of physical activity. In the absence of recurrent symptoms, no cardiology follow-up necessary. Case discussed with Dr. Oliver. Admission and Anticipated Discharge Date Admission Date: February 27, 2024 Subjective Doing well, slept well, no further chest pain. Still with occasional nonproductive cough, gradually improving. Telemetry showed sinus rhythm/sinus bradycardia at 50-70 bpm. No ectopy or dysrhythmias. Physical Exam Physical Exam: Appears comfortable (awaken from sleeping). Afebrile. Normotensive. Pulse 53 bpm and regular. Respirations 18 unlabored. Skin: no ecchymoses or generalized lesions. HEENT: unremarkable. Neck: JVP at the clavicle at 90 degrees, no carotid bruits. Lungs: clear. Cardiac: regular rhythm, normal S1-2, no murmur or rub. Abdomen: benign. Extremities: no edema, pulses intact. Neurologic: normal affect and conversation, nonfocal. Results & Data Vital Signs (Past 12 Hours) Vital Signs Temp Pulse Resp BP BP Pulse Ox O2 Del Method 02/29/24 07:37 97.5 F L 60 18 120/71 98 Room Air 02/29/24 02:53 98.2 F 61 16 117/72 97 Room Air Laboratory Results Normal electrolytes, BUN 16, creatinine 0.78. PG Care Time/CCT Total # of Minutes Spent Total Time Spent with Patient: Total time spent is greater than 50% in coordination of care (as documented) at patient's floor/unit and/or counseling patient: Coding Level of Care Code 56177 SUB INP/OBS CARE 2/35MIN Diagnoses Myocarditis I51.4 Viral URI J06.9 Group A streptococcal infection B95.0
--- NOTE | 2024-02-29 11:37 | Discharge Summary ---
Discharge Summary Date of Service February 29, 2024 Principal Dx & Hospital Course #1 = Principal Diagnosis (1) Sepsis: (2) Bronchopneumonia: (3) Group A streptococcal infection: (4) Elevated troponin: Plan per Dr. Matias' notes with addendum: Jae Gill is a 24y/o M with no significant PMHx who presented to the ED on 02/27/2024 secondary to cough/congestion/sore throat x 2 weeks and centralized chest pain that began this morning. He was found to have mild right upper lobe bronchopneumonia in addition to an elevated troponin level x 2 on presenting workup. #Sepsis 2/2 R Upper Lobe Bronchopneumonia, Group A Strep Positive: #Coronavirus Meets sepsis criteria on admission 2/2 tachycardia, tachypnea + source of infection. 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 CXR personally reviewed and unremarkable. Chest CTA --> Mild R upper lobe bronchopneumonia, no evidence of PE. S/p 1L NSS, 2g IV Rocephin and 100mg po doxycycline in the ED. No leukocytosis, lactate negative on admitting labs. Procalcitonin WNL. Biofirenegative . Group A Strep PCR positive. and coronavirus + Continue cefdinir and azithromycin ID consult for input on myocarditis 02/28 clinically improved remains on room air, no dyspnea, cough is much better discharge plan: Cefdinir 300mg BID x 7 more days Azithromycin 250mg daily x 3 more days #NTSEMI #Chest Pain R/O, C/F Possible Strep Myocarditis: Initial troponin 152.8 --> repeat troponin uptrended to 219.5 at 15:00. Initial EKG personally reviewed and notably unremarkable. ED provider, Dr. Moses, spoke with Dr. Ackerman from [facility] whom recommended obtaining an echocardiogram to rule out possible myocarditis. Continue to trend troponin Q6H, repeat EKG in AM. EKG w/ chest pain PRN. Echocardiogram WNL Cards following: troponin trended down 229 --> 378 --> 242--> 168 02/28 re-evaluated by Senior Insight Manager International Dr. Ackerman myocarditis felt to be more from Coronavirus NL63 recommend to treat Strep pneumonia x 7 days no heavy exertion for at least 2 weeks #Episode of Mild Hematochezia no other GI symptoms no diarrhea, pain with bowel movement patient advised to monitor closely and seek medical attention VITA if recurrent, increased blood in the stools, etc plan of care discussed with patient in detail and at length all questions answered he is understanding, agreeable, comfortable with the plan of care DVT Prophylaxis: SQ Lovenox Code Status: FULL CODE PCP: NO PCP - Unassigned Disposition: d/c home ff up with Primary Care Physician in 1 week - strongly advised to establish with a PCP Notes For Next Care Provider Medication Changes From Visit -Azithromycin 250mg for 3 more days -Cefdinir 300mg two times a day, for 7 more days Admission HPI Per Admitting Provider Jae Gill is a 24y/o M with no significant PMHx who presented to the ED on 02/27/2024 secondary to cough/congestion/sore throat x 3 to 4 weeks and centralized chest pain that began this morning. History obtained from patient and associated chart review. Patient reports that he has been experiencing a productive cough of greenish sputum, sinus congestion and sore throat for the past 3 to 4 weeks. He recently traveled up to [place] to meet up with some of his friends who attend [employer]. It was his birthday yesterday so he had been out drinking alcohol over the weekend. 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 He used to follow with a [facility]CP in [place], [place] but has not done so in some time. He is not currently established with any PCP. Per [facility] documentation, appears patient may be trying to establish care with [facility] in [place] but he did not mention this during our conversation. He notes that his voice has become quite hoarse due to his ongoing cough. No recent fevers, chills/body aches or night sweats that he recalls. He mentions that he started to feel faint when he stood up earlier this morning. He also b linh to experience some centralized chest pain and shortness of breath. Patient mentions that it felt like he was "having a panic attack." This episode lasted approximately 45 minutes. He denies ever passing out but mentions he started to feel rather weak overall and was very shaky as his heart "felt like it was racing." He reports that the chest pain was initially sharp but now feels more dull, achy. Denies any radiation of the chest pain. No prior history of anxiety or asthma. Denies any lightheadedness or dizziness currently. His throat pain has gotten progressively worse as his cough and congestion persist despite using various OTC decongestants/pain relieving medications (such as ibuprofen/acetaminophen). Patient does not take any prescribed medications. No recent fevers, N/V or diarrhea. He has been tolerating a diet without issue. He has not been seen by any medical providers since these symptoms began. No leukocytosis on admitting labs however his initial troponin was 152.8 and then repeat troponin uptrended to 219.5 --> ED provider, Dr. Moses, spoke with Dr. Ackerman from [facility] whom recommended obtaining an echocardiogram to rule out possible pericarditis/myocarditis given his elevated troponin. [facility] viral panel pending. CXR was unremarkable. Chest CTA revealed mild right upper lobe bronchopneumonia but was negative for any evidence of PE. Admission Exam Per Admitting Provider General: WD/WN, NAD, sitting up in bed, pleasant, hoarse voice but conversing appropriately. A+Ox3, euthymic affect. HEENT: Normocephalic, atraumatic. Conjunctivae normal. External ear and nose normal, oropharynx with mild erythema. Respiratory: Normal respiratory effort, lungs clear to auscultation, no wheeze/rales/rhonchi. No accessory muscle use. Cardiovascular: Regular rate, rhythm, normal peripheral pulses, no BLE edema. Vessels: No JVD. Abdomen/GI: Normal bowel sounds, soft, nondistended, nontender to palpation in all quadrants. Extremities/Musculoskeletal: No cyanosis or clubbing, extremities motor strength intact, moves all extremities. Neurologic: No overt focal deficits, CN's II-XI not formally tested but appear grossly intact bilaterally. Skin: No rashes, normal color, warm/dry. Discharge Exam General- oriented x 3, not in distress, speaks in sentences with no effort or accessory muscle use Eyes- anicteric Neck- no JVD Lungs- clear breath sounds bilaterally, no rales/wheezes Heart- normal rate, regular rhythm; no murmurs Abdomen- normal bowel sounds, nondistended, soft, nontender Extremities- no pretibial edema, no calf tenderness Neuro- alert, oriented x 3; no gross focal neurologic deficits Updated Medication List Medication Instructions Recorded Confirmed Type azithromycin 250 mg tablet 250 mg PO DAILY 4 days #4 tabs 02/28/24 Rx cefdinir 300 mg capsule 300 mg PO Q12H 7 days #14 caps 02/28/24 Rx Hospital Stay Data Consultations 02/27/24 16:38 ED Decision to Admit Stat 02/27/24 18:24 Consult Cardiology Routine 02/28/24 16:34 Consult Infectious Diseases Routine Diagnostic Imagining Performed 02/27/24 13:59 CT angio chest PE protocol Stat CT angio chest PE protocol CT DOSE: 733.02 mGy.cm HISTORY: 24 years-old Male with PE. Acute cough with chest pain TECHNIQUE: Multiple CTA images of the chest were obtained after the intravenous administration of 112 ml Optiray. Coronal and sagittal MIPS were obtained from the axial data set and were submitted for review. All measurements were obtained according to NASCET criteria. A dose lowering technique was utilized adhering to the principles of ALARA. COMPARISON: Chest radiograph of same day FINDINGS: CTA: There is adequate opacification of the pulmonary arteries to the level of the subsegmental branches without convincing evidence of acute pulmonary embolism. Normal thoracic aorta.Heart size is normal. CT CHEST: No dominant thyroid nodule is seen. No pathologically adenopathy by CT size criteria. There is no pneumothorax, pleural effusion or pulmonary edema. Residual thymic tissue in the anterior mediastinum. Mild bilateral bronchial wall thickening with areas of mosaic attenuation and air trapping noted within the left lung. Mild bronchoalveolar distribution of subcentimeter consolidative nodular foci within the posterior segment right upper lobe. No lobar space consolidation. Central airways are patent. The imaged upper abdominal structures are normal. The osseous structures appear unremarkable. IMPRESSION: 1. No pulmonary emboli. 2. Mild right upper lobe bronchopneumonia. 3. No pleural effusion or lymphadenopathy. ACT 112: Negative or not required by law. The above report was generated using voice recognition software. It may contain grammatical, syntax or spelling errors. Electronically signed by: Simba Donnelly M.D. 02/27/2024 3:25 PM 02/27/24 17:32 CT head/brain wo con Urgent EXAM: CT Head Without Intravenous Contrast INDICATION: Presyncope. TECHNIQUE: Axial computed tomography images of the head/brain without intravenous contrast. Sagittal and/or coronal reformats are provided. Sagittal and coronal reformatted images were created and reviewed. This CT exam was performed using one or more of the following dose reduction techniques: automated exposure control, adjustment of the mA and/or kV according to patient size, and/or use of iterative reconstruction technique. COMPARISON: No relevant prior studies available. FINDINGS: Limitations: None. Brain and extra-axial spaces: No abnormality noted. No hemorrhage. No significant white matter disease. No edema. No ventriculomegaly. Bones/joints: No acute changes. Soft tissues: No significant abnormality noted. Vasculature: No acute abnormality noted. Sinuses: No layering fluid in the visualized portions of the paranasal sinuses. Mastoid air cells: No mastoid effusion. Orbits: No significant abnormality noted. IMPRESSION: No abnormality noted. ACT 112: Negative or not required by law. Electronically signed by Samantha Bach 02-27-2024 6:00 PM Pending Results Patient Have Any Pending Studies at Discharge: No Discharge Instructions Given to Patient (Per Discharging Provider) PLEASE REFER TO YOUR NEW MEDICATION LIST AND FOLLOW INSTRUCTIONS CAREFULLY. YOUR NEW MEDICATIONS INCLUDE: You were admitted for a strep pneumonia You were started on antibiotics. You will continue the following course: -Azithromycin 250mg for 3 more days, starting tomorrow -Cefdinir 300mg two times a day, for 7 more days, starting tonight Please take a probiotic daily x 1 month ([employer]ew[employer] brand recommended) and eat yogurt daily, to prevent diarrhea. NO HEAVY EXERTION, EXERCISE FOR AT LEAST 2 WEEKS. PLEASE CALL YOUR PRIMARY CARE PHYSICIAN OR RETURN TO THE ER IF WITH WORSENING OF SYMPTOMS, INCLUDING cough, shortness of breath, chest pain, fever/chills, palpitations, dizziness, passing out, diarrhea, blood in the stools, etc FOLLOW UP WITH PRIMARY CARE PHYSICIAN IN 1 WEEK. FOLLOW UP WITH GLASS INSPECTOR IN 2-3 WEEKS. Total Time Total Time Spent Total Time Spent (In Minutes): 55 minutes
--- NOTE | 2024-02-29 13:40 | Infectious Disease Consult ---
Date of Service February 29, 2024 Telehealth Information I performed this visit using a real-time telehealth connection between my location and the patients location ([facility]). After connecting through interactive tele-video, patient was identified by name and date of and/or wristband check.Patient (or authorized healthcare patient relations representative) was informed that this was a telemedicine visit and it was being conducted confidentially over secure lines. My office door was closed and no one else was present in the room with me.Patient (or authorized healthcare patient relations representative) provided consent to proceed with the visit, expressed an understanding of privacy and security of the telemedicine visit, and gave permission to have a hospital patient relations representative in the room in order to assist with the visit and to conduct portions of the visit, as needed. I informed the patient (or authorized healthcare patient relations representative) that I reviewed their record and presented the opportunity for them to ask any questions regarding the visit today. The patient agreed to participate. Assessment & Plan (1) Group A streptococcal infection: Plan: For the coronavirus infection, I recommend supportive treatment. For the GAS tonsillopharyngitis (with a PCN allergy), I recommend a 10-day course of cefuroxime (usual dose is 500mg twice daily) provided that the patient can tolerate PO cephalosporins. The cefuroxime should also be adequate for CAP (if Legionella has not been ruled out and the QTc is acceptable, then adding azithromycin is reasonable). Before discharging the patient, I would re-assess his sore throat - I would expect significant improvement with IV ABX. If there is not improvement then I would consider a suppurative complication (peritonsillar abscess, etc). If any orders were placed, it will be noted above. Otherwise, all orders are deferred to the primary/requesting service. These recommendations are not final. For subsequent recommendations, use the on- call schedule to find who is covering your facility. (Note: the patient was discharged before I had time to complete my consultation) History of Present Illness History of Present Illness The patient was admitted with a sore throat. Upon admission, he was noted to have non-sarsCOV2 coronavirus, GAS tonsillopharyngitis and possible CAP. He was started on ceftriaxone and doxycycline. During the admission, the patient was seen by Cardiology for chest pain. Cardiology noted "...elevated troponin with transient chest pain likely represents a mild myocarditis, echocardiogram is reassuring and that he has no pericardial effusion or wall motion abnormalities...at this point, unclear whether the myocarditis could be due to adjacent bronchopneumonia or the common cold coronavirus, less likely is related to strep (since he is afebrile with a normal white count his strep infection is not likely systemic)..." When I interviewed the patient today, he reported that his chest pain was better and that he was not short of breath. He did not feel that his throat pain had improved with ABX. Allergies Allergy/AdvReac Type Severity Reaction Status Date / Time amoxicillin Allergy Unknown Verified 02/27/24 19:10 Home Medications Medication Instructions Recorded Confirmed Type azithromycin 250 mg tablet 250 mg PO QAM #3 tabs 02/29/24 Rx cefdinir 300 mg capsule 300 mg PO BID 7 days #14 caps 02/29/24 Rx Patient History Medical History No significant medical problems Social History Smoking Status: Current every day smoker Tobacco Type: E-cigarettes / Vaping Second Hand Exposure: No; Do You Dip or Chew Tobacco: No; Hx Alcohol Use: Yes Alcohol type: beer and hard liquor Hx Substance Use: No Preferred Language: Kyrgyz Communication Ability: Effective Nuclear Pharmacist Required: No Beliefs That Will Affect Care: None Current Living Situation: Family Feels Safe at Home: Yes Review of Systems As reviewed in HPI; a complete ROS was otherwise negative Physical Exam Vitals: see EMR Exam limited due to constraints of telemedicine Gen/Constitutional: appears at stated age, NAD, nontoxic Head: AT, NC Eyes: sclera anicteric, no conjunctival injection ENT: MMM, trachea midline Card: appears to be well-perfused Resp: not tachypneic, nml effort, symmetric chest rise, no accessory muscle use Derm: no visible diaphoresis, no visible rash, no visible jaundice Results & Data Vital Signs (Past 12 Hours) Vital Signs Temp Pulse Pulse Pulse Resp BP BP 02/29/24 12:30 36.4 C L 70 60 18 117/72 120/71 02/29/24 08:00 53 L 02/29/24 07:37 36.4 C L 60 18 120/71 02/29/24 02:53 36.8 C 61 16 117/72 Pulse Ox O2 Del Method 02/29/24 12:30 98 02/29/24 08:00 02/29/24 07:37 98 Room Air 02/29/24 02:53 97 Room Air Laboratory Results SEE EMR Diagnostic Findings [address] [place] [address] / Director: Huong Gaines M.D. Clinical Laboratory Report Name: ULICES SARMIENTO Acct: [id number] Status: DIS IN : 2000 [facility] Date: 02/27/24 Age: 24 Sex: M Dis Date: 02/29/24 Loc: [address]/Bed: [facility] Spec : [id number] Collected: 02/27/24-UNK Received: 02/27/24-1737 [facility] Dr: Mariia Shaffer, YOLI Ordered: Grp A Strep Test Result Flag Reference Site Grp A Strep PCR | DETECTED | A | NotDetected | Name: ULICES SARMIENTO : 2000 PAGE 1 Printed: 02/29/24 1632 END OF REPORT [address] [place] [address] / Director: Huong Gaines M.D. Clinical Laboratory Report Name: ULICES SARMIENTO Acct: [id number] Status: DIS IN : 2000 [facility] Date: 02/27/24 Age: 24 Sex: M Dis Date: 02/29/24 Loc: [address] Rm/Bed: W258-1 Spec : [id number] Collected: 02/27/24 Received: 02/27/[address]: Mariia Shaffer PA-C Ordered: Upp Res TECHNICAL CLERK PCR* Queries: Specimen Source Nasopharyngeal Ethnicity [place] Race WH Test Result Flag Reference Site Upper Res Virus | | | | Adenovirus PCR | Not Detected | | NotDetected | [id number] | Not Detected | | NotDetected | CoronavirusHKU1 | Not Detected | | NotDetected | [id number] | DETECTED | A | NotDetected | [id number] | Not Detected | | NotDetected | SARS CoV-2 PCR | Not Detected | | NotDetected | | Biofire methodology: | Real-time, Multiplex PCR Nucleic Acid test | | This test has not been FDA cleared or approved; the test has | been authorized by FDA under an Emergency Use Authorization | (EUA). Test results must be correlated clinically. Negative | results do not preclude COVID-19 infections and should not | be used as the sole basis for treatment or other management | decisions. A positive result may occur after the COVID- 19 | virus is no longer viable. Metapneumovirus | Not Detected | | NotDetected | Rhinovir/Entero | Not Detected | | NotDetected | Influenza A PCR | Not Detected | | NotDetected | Influenza B PCR | Not Detected | | NotDetected | Parainfluenza 1 | Not Detected | | NotDetected | Parainfluenza 2 | Not Detected | | NotDetected | Parainfluenza 3 | Not Detected | | NotDetected | Parainfluenza 4 | Not Detected | | NotDetected | RSV PCR | Not Detected | | NotDetected | Upper Res Bact | | | | B.parapertussis | Not Detected | | NotDetected | Bord. pertussis | Not Detected | | NotDetected | Chlamydia pneum | Not Detected | | NotDetected | Mycoplasma pneu | Not Detected | | NotDetected | Name: ULICES SARMIENTO : 2000 PAGE 1 Printed: 02/29/24 4522 END OF REPORT Source Blood Procedure/Result Aerobic Blood Culture - Pending Anaerobic Blood Culture - Pending 02/28/24 19:31 Micro Blood Specimen Received Source Blood Procedure/Result Aerobic Blood Culture - Pending Anaerobic Blood Culture - Pending
== END 2024-02-29 13:09 | disposition home or self-care (01) | DRG 871 ==
LOC: ED 12:51 → SUATTDRO 16:50 → 2W 16:50